=== PATIENT | female | born 2000 | race Hispanic/Latino ===

== ENCOUNTER 2025-03-18 09:46 | Emergency (ER) | payer OTHER ==
[2025-03-18] MEDS ORDERED: Ondansetron PF 4 MG/2 ML Vial ONE (10:10)
[2025-03-18] MEDS ORDERED: Famotidine/PF 20 mg/2ml Vial ONE (10:10)
[2025-03-18 10:20] LABS: #Basophils Less than 0.03 10x3/uL (0.0-0.2); #Eosinophils Less than 0.03 10x3/uL (0.0-0.5); #Monocytes 0.13 10x3/uL (0.0-1.1); #Neutrophils 10.53 10x3/uL (1.5-8.4); %Basophils 0.1 % (0.0-2.0); %Eosinophils 0.0 % (0.0-6.0); %Lymphocytes 11.6 % (18.0-47.0); %Monocytes 1.1 % (0.0-10.0); %Neutrophils 87.0 % (40.0-75.0); Hematocrit 38.3 % (34.9-44.5); Hemoglobin 12.6 g/dL (12.0-15.5); Mean Corpuscular Hemoglobin 29.0 pg (27.0-33.0); Mean Corpuscular Volume 88.2 fL (81.6-98.3); Platelet Count 300 10x3/uL (150-450); Red Blood Cell (RBC) Count 4.34 10x6/uL (3.90-5.03); White Blood Cell (WBC) Count 12.10 10x3/uL (3.5-10.5)
[2025-03-18 10:28] LABS: BHCG - Serum Negative (NEGATIVE); Pregs Control Background? CLEAR/WHITE (CLR/WHITE); Pregs Control Bar Appear? YES (CONTROL BAR)
[2025-03-18 10:35] LABS: ALT (SGPT) 12 U/L (Less than 34); AST (SGOT) 18 U/L (11-34); Albumin 4.1 g/dL (3.1-4.5); Alkaline Phosphatase 58 U/L (40-110); Anion Gap 16 mmol/L (10-20); BUN (Urea Nitrogen) 5 mg/dL (7.0-18.7); Bilirubin, Total 0.3 mg/dL (0.3-1.2); Calc. Creatinine Clearance 0 mL/min (70-130); Calcium 9.1 mg/dL (7.8-10.44); Carbon Dioxide 22 mmol/L (22-29); Chloride 105 mmol/L (98-107); Globulin 4.0 g/dL (2.4-3.5); Glucose 121 mg/dL (70-105); Lipase 11 U/L (8-78); Potassium 3.6 mmol/L (3.5-5.1); Sodium 139 mmol/L (136-145)
[2025-03-18] MEDS ORDERED: Ketorolac Tromethamine 30 MG (1 mL) VIAL ONE (11:02)
[2025-03-18 11:44] LABS: Glucose, Urine (Dipstick) Normal (Negative); Leukocyte 25 (Negative); Protein, Urine (Dipstick) Negative (Neg-Trace); Specific Gravity, Urine 1.005 (1.005-1.030)
[2025-03-18 12:02] LABS: Bacteria/HPF Rare-Few HPF (None Seen); CAUTI Indications for Culture Pelvic or flank pain; RBC/HPF 0-3 HPF (0-3); WBC/HPF 0-3 HPF (0-3)
[2025-03-18 12:03] LABS: Urine Culture Reflex No No
== END 2025-03-18 13:17 | disposition home or self-care (01) ==
LOC: CSHERS 09:46
DX: K80.20 Calculus of gallbladder without cholecystitis without obstruction (principal)
CPT/HCPCS: 76705; 80053; 81001; 83690; 84703; 85025; 96374; 96375; 96376; J1308; J1885; J2270; J2405

== ENCOUNTER 2025-03-21 10:47 | Day surgery (SDC) | payer OTHER ==
[2025-03-20 15:59] VITALS: BMI 32.1
[2025-03-21] MEDS ORDERED: CEFAZOLIN 2 GM VIAL ONE (11:15)
[2025-03-21] MEDS ORDERED: Bupivacaine/Epinephrine 0.25% 30 ML VIAL ONE (11:16)
[2025-03-21] MEDS ORDERED: Acetaminophen 500 MG TAB ONE (11:38)
[2025-03-21 11:58] LABS: ALT (SGPT) 29 U/L (Less than 34); AST (SGOT) 35 U/L (11-34); Albumin 3.8 g/dL (3.1-4.5); Alkaline Phosphatase 84 U/L (40-110); Bilirubin, Direct 0.3 mg/dL (0.1-0.3); Bilirubin, Total 0.7 mg/dL (0.3-1.2)
[2025-03-21] MEDS ORDERED: PROPOFOL 20 ML ONE (12:41)
[2025-03-21] MEDS ORDERED: Lidocaine 1% PF 5 ML VIAL ONE (12:42)
[2025-03-21] MEDS ORDERED: Rocuronium Bromide 10 MG/ML (10ML VIAL) ONE (12:42)
[2025-03-21] MEDS ORDERED: SUGAMMADEX SODIUM 200 MG/2 ML VIAL ONE (13:49)
[2025-03-21] MEDS ORDERED: Ondansetron PF 4 MG/2 ML Vial ONE (13:49)
[2025-03-21] MEDS ORDERED: oxyCODONE 5 MG TAB ONE (15:07)
== END 2025-03-21 15:35 | disposition home or self-care (01) ==
LOC: CSHSDC 10:47
PROVIDERS: ATTEND Surgery
PROC: 0FT44ZZ Resection of Gallbladder, Percutaneous Endoscopic Approach (ICD-10-PCS; principal; 2025-03-21)
DX: K80.12 Calculus of gallbladder with acute and chronic cholecystitis without obstruction (principal)
CPT/HCPCS: 47562; C9776; 36415; 80076; 88304; C1889; J1100; J2405; J2704; J3010; S2900